=== PATIENT | female | born 1985 | race Caucasian/White ===

== ENCOUNTER 2022-10-19 10:42 | Emergency (ER) | payer MEDICAID ==
[~2022-10-19] VITALS: Ht 160 cm; Wt 75.0 kg
[2022-10-19] MEDS ORDERED: chlordiazePOXIDE 25mg capsule PO ONE (11:35)
[2022-10-19] MEDS ORDERED: ondansetron 4mg rapidly disintigrating tab PO ONE (11:35)
[2022-10-19 12:06] VITALS: BP 133/101
[2022-10-19 12:09] LABS: CLARITY,URINE CLOUDY (Clear); COLOR,URINE YELLOW (Yellow); GLUCOSE, URINE NEGATIVE (Neg); KETONES,URINE 15 mg/dl (Neg); LEUKOCYTE ESTERASE ,URINE NEGATIVE (Neg); NITRITES, URINE NEGATIVE (Neg); OCCULT BLOOD,URINE MODERATE (Neg); PROTEIN,URINE 100 mg/dl (Neg)
[2022-10-19 12:19] LABS: UA COLLECTION TYPE CLN CATCH MIDSTREAM
[2022-10-19 12:20] LABS: MUCUS STRANDS MANY /LPF (Neg); SQUAMOUS EPITHELIAL CELL,UR MANY /LPF (FEW)
[2022-10-19 12:21] LABS: BACTERIA,URINE 2+ /HPF (Neg)
[2022-10-19 12:22] LABS: RBC,URINE 0-2 /HPF (0-2); WBC,URINE 0-4 /HPF (0-4)
[2022-10-19] MEDS ORDERED: proCHLORperazine 10mg tablet PO ONE (13:00)
[2022-10-19] MEDS ORDERED: ONDA4TAB12 PO (13:01)
[2022-10-19] MEDS ORDERED: CHLO25CA10 PO (13:01)
[2022-10-20] MEDS ORDERED: CHLO25CA10 PO (00:20)
== END 2022-10-19 13:31 | disposition home or self-care (01) ==
LOC: ER 10:42
DX: F10.10 Alcohol abuse, uncomplicated (principal); R56.9 Unspecified convulsions; G89.29 Other chronic pain; F41.9 Anxiety disorder, unspecified; F17.200 Nicotine dependence, unspecified, uncomplicated; Z88.1 Allergy status to other antibiotic agents; Z88.8 Allergy status to other drugs, medicaments and biological substances; Y90.9 Presence of alcohol in blood, level not specified
CPT/HCPCS: 81001; 99284; Q0164; A4565

== ENCOUNTER 2022-10-19 22:20 | Emergency (ER) | payer MEDICAID ==
[~2022-10-19] VITALS: Ht 160 cm; Wt 77.0 kg
[~2022-10-19 22:20] MED LIST: CHLO25CA10 PO; ONDA4TAB12 PO
[2022-10-19] MEDS ORDERED: proCHLORperazine 10 MG/2 ml inj IV ONE (22:50)
[2022-10-19] MEDS ORDERED: LORazepam 2 mg/ml vial IV ONE (22:50)
[2022-10-19] MEDS ORDERED: levetiracetam inj 1,000 MG in normal saline 100ml IV soln 90 ML IV ONE (22:50)
[2022-10-19] MEDS ORDERED: levetiracetam inj 1,000 MG in normal saline 100ml IV soln 100 ML IV ONE (22:54)
[2022-10-19] MEDS ORDERED: famotidine/PF 10 mg/ml inj IV ONE (23:00)
[2022-10-19 23:13] LABS: BASOPHILS # (AUTO) 0.1 X10'3 (0-0.2); EOSINOPHILS % (AUTO) 0.7 % (0-6); LYMPHOCYTES # (AUTO) 0.9 X10'3 (1.1-4.8); MONOCYTES # (AUTO) 0.3 X10'3 (0-0.9); NEUTROPHILS # (AUTO) 2.6 X10'3 (1.8-7.7); RED BLOOD COUNT 4.68 X10'6 (4.20-5.60)
[2022-10-19 23:15] LABS: BASOPHILS % (AUTO) 2.2 % (0-1); HEMATOCRIT 44.7 % (35.0-45.0); HEMOGLOBIN 14.9 g/dl (12.0-16.0); LYMPHOCYTES % (AUTO) 22.9 % (21-51); MEAN CORPUSCULAR HEMOGLOBIN 31.8 PG (27.0-31.0); MEAN CORPUSCULAR HGB CONC 33.4 g/dL (33.0-36.5); MEAN CORPUSCULAR VOLUME 95.5 FL (78-98); MEAN PLATELET VOLUME 7.9 FL (7.4-10.4); MONOCYTES % (AUTO) 7.2 % (2-12); PLATELET COUNT 176 X10'3 (140-440); WHITE BLOOD COUNT 3.9 X10'3 (4.5-11.0)
[2022-10-19 23:26] LABS: ALANINE AMINOTRANSFERASE 110 U/L (12-78); ALBUMIN 4.5 G/DL (3.4-5.0); ALBUMIN/GLOBULIN RATIO 1.2 (1.1-1.5); ALKALINE PHOSPHATASE 144 IU/L (46-116); ANION GAP 13 (8-16); ASPARTATE AMINO TRANSFERASE 174 U/L (10-37); BILIRUBIN,TOTAL 1.3 MG/DL (0.1-1.0); BLOOD UREA NITROGEN 7 MG/DL (7-18); BUN/CREATININE RATIO 8.2 (6.6-38.0); CALCIUM 9.8 MG/DL (8.5-10.1); CHLORIDE 98 MMOL/L (99-107); CREATININE 0.85 MG/DL (0.40-0.90); GLUCOSE 86 MG/DL (70-104); POTASSIUM 3.5 MMOL/L (3.5-5.1); SODIUM 135 MMOL/L (135-145); TOTAL CARBON DIOXIDE 23.6 MMOL/L (24-32); TOTAL PROTEIN 8.4 G/DL (6.4-8.2); eGFR 76 ML/MIN
[2022-10-19 23:27] LABS: HCG SERUM QL NEGATIVE
[2022-10-19 23:29] LABS: LIPASE 209 U/L (73-393); MAGNESIUM 1.6 MG/DL (1.5-2.4)
[2022-10-19] MEDS ORDERED: metoclopramide 5 mg/ml inj IV ONE (23:35)
[2022-10-19 23:40] LABS: PLATELET ESTIMATE NORMAL; TOTAL CELLS COUNTED 100
[2022-10-20] MEDS ORDERED: chlordiazePOXIDE 25mg capsule PO ONE (00:20)
[2022-10-20] MEDS ORDERED: CHLO25CA10 PO (00:20)
[2022-10-20 03:08] VITALS: BP 145/96
[2022-10-20] MEDS ORDERED: metoclopramide 10mg tablet PO ONE (03:10)
[2022-10-20] MEDS ORDERED: haloperidol lactate 5mg/ml inj IM ONE (03:10)
[2022-10-20] MEDS ORDERED: ondansetron 4mg rapidly disintigrating tab PO ONE (03:10)
== END 2022-10-20 03:22 | disposition home or self-care (01) ==
LOC: ER 22:20
DX: F10.239 Alcohol dependence with withdrawal, unspecified (principal); G89.29 Other chronic pain; Z88.1 Allergy status to other antibiotic agents; Z88.8 Allergy status to other drugs, medicaments and biological substances; Y90.9 Presence of alcohol in blood, level not specified
CPT/HCPCS: 36415; 80053; 83690; 83735; 84484; 84703; 85007; 85025; 93005; 96365; 96372; 96375; 99284; J0780; J1630; J1953; J2060; J2765; J3490

== ENCOUNTER 2024-03-22 10:49 | Emergency (ER) | payer MEDICAID ==
[~2024-03-22] VITALS: Ht 160 cm; Wt 81.8 kg
[~2024-03-22 10:49] MED LIST changes: +ONDA-243 PO; -ONDA4TAB12 PO
[2024-03-22] MEDS: chlordiazePOXIDE 25mg capsule PO ONE (15:05)
[2024-03-22 15:06] VITALS: BP 134/88; PULSE 92; RESP 16; TEMP 98; O2SAT 98
== END 2024-03-22 15:08 | disposition home or self-care (01) ==
LOC: ER 10:50
DX: F10.239 Alcohol dependence with withdrawal, unspecified (principal); G89.29 Other chronic pain; F41.9 Anxiety disorder, unspecified; Z88.1 Allergy status to other antibiotic agents; Z79.899 Other long term (current) drug therapy
CPT/HCPCS: 99284